=== PATIENT | male | born 1940 | race Caucasian/White ===

== ENCOUNTER 2021-10-19 11:57 | Outpatient (CLI) | payer MEDICARE, BC, SELFPAY ==
--- NOTE | 2021-10-19 | ECG_ITS ---
Measurements Intervals [place] Rate: 51 P: 33 VA: 216 QRS: -4 QRSD: 153 T: 2 QT: 456 QTc: 423 Interpretive Statements SINUS BRADYCARDIA WITH FIRST DEGREE AV BLOCK RIGHT BUNDLE BRANCH BLOCK ABNORMAL ECG NO PREVIOUS ECG AVAILABLE FOR COMPARISON Electronically Signed On 10-19-2021 15:06:11 CDT by Jamie Storm D.O.
[2021-10-19 12:27] LABS: Hematocrit 39.8 % (42.0-52.0)
[2021-10-19 12:39] LABS: Albumin Level 4.3 g/dL (3.5-5.1); Estimated Glomerular Filt Rate > 60; Glucose 96 mg/dL (65-110)
[2021-10-19 14:25] LABS: Hemoglobin A1C 5.6 % (<5.7)
== END 2021-10-19 11:58 | disposition home or self-care (01) ==
PROVIDERS: PCP Family Medicine; Visit Provider Orthopaedic Surgery
DX: M17.12 Unilateral primary osteoarthritis, left knee (principal); I10 Essential (primary) hypertension; E78.5 Hyperlipidemia, unspecified; Z86.79 Personal history of other diseases of the circulatory system; Z01.818 Encounter for other preprocedural examination
CPT/HCPCS: 36415; 82040; 82565; 82947; 83036; 85014; 85018; 93005

== ENCOUNTER 2021-11-28 11:48 | Outpatient (CLI) | payer MEDICARE, BC, SELFPAY ==
[2021-11-28 13:19] LABS: Basophils Absolute Auto 0.1 K/mm3 (0.0-0.1); Basophils Percent Auto 1.2 % (0.2-1.2); Eosinophils Absolute Auto 0.1 K/mm3 (0-0.3); Eosinophils Percent Auto 1.7 % (0-4.4); Hematocrit 40.8 % (42.0-52.0); Hemoglobin 13.4 g/dL (14.0-18.0); Immature Granulocyte Absolute 0.02 K/mm3 (0.00-0.031); Immature Granulocyte Percent A 0.4 % (0-0.5); Lymphocytes Absolute Auto 1.76 K/mm3 (0.9-3.2); Lymphocytes Percent Auto 33.8 % (18.3-44.2); Mean Corpuscular HGB Conc 32.8 g/dl (32-36); Mean Corpuscular Hemoglobin 32.4 pg (26-34); Mean Corpuscular Volume 98.6 fl (80-100); Mean Platelet Volume 9.2 fl (7.4-10.4); Monocytes Absolute Auto 0.6 K/mm3 (0.1-0.6); Monocytes Percent Auto 12.1 % (2.6-8.5); Neutrophils Absolute Auto 2.6 K/mm3 (1.3-6.7); Neutrophils Percent Auto 50.8 % (45.5-73.1); Platelet Count Result 205 k/mm3 (150-375); Red Blood Count 4.14 M/mm3 (4.6-6.20); Red Cell Distribution Width 13.1 % (11.5-14.5); White Blood Count 5.2 K/mm3 (4.5-10.0)
[2021-11-28 13:26] LABS: Urine Cotinine NEGATIVE
[2021-11-28 13:26] LABS: Anion Gap 9 mmol/L (8-16); Blood Urea Nitrogen 20 mg/dL (9-20); Calcium 9.3 mg/dL (8.4-10.2); Carbon Dioxide 31 mmol/L (22-30); Chloride 99 mmol/L (98-107); Estimated Glomerular Filt Rate > 60; Glucose 100 mg/dL (65-110); Potassium 4.9 mmol/L (3.4-5.0); Sodium 139 mmol/L (137-145)
== END 2021-11-28 11:49 | disposition home or self-care (01) ==
LOC: ANHSURGERY 11:54
PROVIDERS: Anesthesiology; PCP Family Medicine; Visit Provider Orthopaedic Surgery
DX: Z01.818 Encounter for other preprocedural examination (principal); M17.12 Unilateral primary osteoarthritis, left knee; I10 Essential (primary) hypertension
CPT/HCPCS: 36415; 80048; 80307; 85025; 87081

== ENCOUNTER 2022-01-16 08:21 | Outpatient (CLI) | payer MEDICARE, BC, SELFPAY ==
[2022-01-16 09:03] LABS: Albumin Level 4.2 g/dL (3.5-5.1)
[2022-01-16 09:24] LABS: Hemoglobin A1C 5.8 % (<5.7)
== END 2022-01-16 08:22 | disposition home or self-care (01) ==
PROVIDERS: PCP Family Medicine; Visit Provider Orthopaedic Surgery
DX: Z01.812 Encounter for preprocedural laboratory examination (principal); M17.12 Unilateral primary osteoarthritis, left knee
CPT/HCPCS: 36415; 82040; 83036; 86850; 86900; 86901

== ENCOUNTER 2022-01-21 00:44 | Day surgery (SDC) | payer MEDICARE, BC, SELFPAY ==
[2021-11-28 12:02] VITALS: BMI 32.1
--- NOTE | 2021-11-28 12:31 | PC.NURSE ---
Report to the Outpatient Waiting Room, entrance under the green pavilion located off [facility], at time __1000 on date __12/24/21 . Planned Procedure Time: _1200 . Time changes happen often and if your time is changed the preop area will call you the afternoon before. - You and your visitor will be asked to self-screen and do not enter if you have any COVID symptoms. - We encourage only one visitor and NO visitors under age 16 are allowed at this time. Your visitor will receive communication by the phone number that is given day of service. - The patient visitor is requested to social distance or may leave the building when not with patient due to restrictions. - A mask is required within the hospital. Patients may have clear liquids (water, carbonated beverages, clear teas, apple juice) until 3 hours prior to surgery with a maximum of 20 ounces. - No food from midnight until time of surgery - Infants may have breast milk until 4 hours before surgery, formula 6 hours prior to surgery. - Children will be allowed to drink immediately following surgery. If applicable, please bring a bottle or sippy cup to assist with drinking. Juice, water, soda, and popsicles are readily available. For infants on formula, please bring formula the day of surgery. Pacifiers are allowed. Take the following medications with a SIP of water the morning of surgery: _METOPROLOL Medications to discontinue per physician ___VITAMIN D3 3 DAYS PRE OP Date to take last dose__12/20/21 TOTAL JOINT CLASS 12/12/21 AT 10 AM Please no make-up, nail bruneian, hairspray, perfume, deodorant, or body powder the day of surgery. No jewelry (including any body piercings) or valuables the day of surgery, leave them at home. Please take a shower or bath the night before, or the morning of, surgery with an antibacterial soap. Wear comfortable, loose fitting clothing. Children are encouraged to wear pajamas. - Jewelry must be removed prior to entering the operating room. Rings and piercings that are not removed may be cut off. - The hospital will not accept responsibility for valuables. - Please leave all valuables, including medications, at home the day of surgery. If you are going home after surgery, a licensed [employer]mobile driver must drive you home. - NO public transportation without another adult. - We recommend that an adult stay with you for 24 hours following discharge. - We also recommend that you do not drive, make important decision, drink alcoholic beverages, or take any drugs that were not prescribed by your health care provider for at least 24 hours after your discharge time. For Pediatric surgeries, we recommend two adults accompany the child home. Follow any additional instructions given to you from your surgeon. If you or anyone in your household have experienced Covid symptoms in the past week, please notify your surgeon or the nurse liaison at the phone number below for possible testing. VERBAL AND WRITTEN instructions given to ___PATIENT AND LEELEE and asked if any additional questions and then verbalized understanding. Patient advised to call surgeon office or pre surgery nurse liaison [phone] if any additional questions.
[2021-11-28 12:56] VITALS: BP 121/71; PULSE 58; RESP 18; TEMP 37.1; O2SAT 99
--- NOTE | 2022-01-09 12:25 | PC.NURSE ---
Report to the Outpatient Waiting Room, entrance under the green pavilion located off [facility] [address] [facility] [address], at time __1000 on date _01/21/22 . Planned Procedure Time: __1200 . Time changes happen often and if your time is changed the preop area will call you the afternoon before. - You and your visitor will be asked to self-screen and do not enter if you have any COVID symptoms. - Only one visitor is requested with a max of two and NO children visitors are allowed at this time. - The patient visitor may be requested to leave or wait in car when not with patient due to distancing restrictions. - A mask is optional within the hospital. Patients may have clear liquids (water, carbonated beverages, clear teas, apple juice) until 3 hours prior to surgery with a maximum of 20 ounces. - No food from midnight until time of surgery - Infants may have breast milk until 4 hours before surgery, infant formula 6 hours prior to surgery. - Children will be allowed to drink immediately following surgery. If applicable, please bring a bottle or sippy cup to assist with drinking. Juice, water, soda, and popsicles are readily available. For infants on formula, please bring formula the day of surgery. Pacifiers are allowed. Take the following medications with a SIP of water the morning of surgery: ___METOPROLOL Medications to discontinue per physician ____VITAMIN D3 3 DAYS PRE OP Date to take last dose___01/17/22 Please no make-up, nail malay, hairspray, perfume, deodorant, or body powder the day of surgery. No jewelry (including any body piercings) or valuables the day of surgery, leave them at home. Please take a shower or bath the night before, or the morning of, surgery with an antibacterial soap. Wear comfortable, loose fitting clothing. Children are encouraged to wear pajamas. - Jewelry must be removed prior to entering the operating room. Rings and piercings that are not removed may be cut off. - The hospital will not accept responsibility for valuables. - Please leave all valuables, including medications, at home the day of surgery. If you are going home after surgery, a licensed driver license agent must drive you home. - NO public transportation without another adult if you receive anesthesia. - We recommend that an adult stay with you for 24 hours following discharge. - We also recommend that you do not drive, make important decision, drink alcoholic beverages, or take any drugs that were not prescribed by your health care provider for at least 24 hours after your discharge time. For Pediatric surgeries, we recommend two adults accompany the child home. Follow any additional instructions given to you from your surgeon. If you or anyone in your household have experienced Covid symptoms in the past week, please notify your surgeon or the nurse liaison at the phone number below for possible testing. Telephone instructions given to __PT'S LEELEE and asked if any additional questions and then verbalized understanding. Patient advised to call surgeon office or pre surgery nurse liaison [phone] if any additional questions.
--- NOTE | 2022-01-09 12:34 | PC.NURSE ---
POSITIVE FOR COVID ON 12/17/21.SURGERY FOR LTKA RESCHEDULED. SPOKE TO LELEEE STATES NO CHANGE IN HEALTH HX SINCE LAST INTERVIEW ON 11/28/21
[2022-01-21] VITALS (14 sets, daily range): BP systolic 117–140; BP diastolic 61–78; PULSE 55–70; RESP 14–19; TEMP 36.2–37.3; O2SAT 95–100
--- NOTE | ~2022-01-21 | XR_ITS ---
EXAMINATION: XR knee LT 2V DATE: 01/21/2022 14:37 INDICATION: Left knee arthroplasty. Postop. TECHNIQUE: 2 views of left knee were obtained. COMPARISON: Left knee radiographs 11/28/2021 FINDINGS: There is a total left knee arthroplasty with patellar resurfacing in near-anatomic alignmen t. No fracture. There are loose bodies in a Adrian's cyst. There is gas in the soft tissues, consisten t with recent surgery. There is a small knee joint effusion. IMPRESSION: 1. Total left knee arthroplasty in near-anatomic alignment. Reviewed, dictated and finalized at location A. E SHEETFED PRESS OPERATOR
--- NOTE | 2022-01-21 08:31 | WPDANESEPPF ---
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 Patient Data Age: 81 Gender: M Height: 1.73 m Weight: 95.9 kg Last Vital Signs Temp 37.1 C 11/28/21 12:56 Pulse 58 L 11/28/21 12:56 Resp 18 11/28/21 12:56 BP 121/71 11/28/21 12:56 Pulse Ox 99 11/28/21 12:56 O2 Del Method Room Air 11/28/21 12:56 Allergies Allergy/AdvReac Type Severity Reaction Status Date / Time No Known Allergies Allergy Verified 01/21/22 10:02 Home Medications Medication Instructions Recorded Confirmed Type atorvastatin 10 mg tablet 10 mg PO DAILY 07/23/21 01/21/22 History hydrochlorothiazide 25 mg tablet 25 mg PO DAILY 07/23/21 01/21/22 History lisinopril 20 mg tablet 20 mg PO DAILY 07/23/21 01/21/22 History potassium chloride 10 mEq 10 meq PO DAILY 07/23/21 01/21/22 History capsule,extended release metoprolol succinate 25 mg 25 mg PO DAILY 11/28/21 01/21/22 History tablet,extended release 24 hr ECG: Date of Service: 10/19/21 Procedure(s): CA 12 lead EKG Accession Number(s): [id number] cc: ~ ? Measurements Intervals? [place]? Rate: ? 51 ? P:? 33 NM: ? 216? QRS:? -4 QRSD: ? 153? T:? 2 QT: ? 456? QTc:? 423? Interpretive Statements SINUS BRADYCARDIA WITH FIRST DEGREE AV BLOCK RIGHT BUNDLE BRANCH BLOCK ABNORMAL ECG NO PREVIOUS ECG AVAILABLE FOR COMPARISON Electronically Signed On 10-19-2021 15:06:11 CDT by Jamie Storm D.O. Patient hx anesthesia problems: none Family hx anesthesia problems: none Results Review: All pre-operative results and documents have been reviewed as part of the pre-operative evaluation. [facility] Past Medical History Medical History (Updated 01/21/22 @ 08:32 by Jose J Kasper MD) Acute pain of right knee BMI 31.0-31.9,adult BMI greater than 30 Encounter for other specified surgical aftercare Essential hypertension Hx of coronary artery disease Hyperlipidemia Other bursitis of hip, right hip Primary osteoarthritis of right hip Surgical History Surgical History History of hernia surgery (~2015) Presence of right artificial hip joint (~2018) Family History Family History Father Bone cancer Mother Cancer Sibling Sibling No problems noted. Social History Social History Smoking packs per day: 1.5 Smoking cigarettes per day: 30.0 Years smoked: 2 Smoking pack-years: 3.00 Smoking status: Former smoker Tobacco type: cigarettes Second hand tobacco smoke exposure: No Smoking end date: 10/11/1966 Additional smoking assessment comments: DENIES ANY FORM OF TOBACCO USE Alcohol intake: current Alcohol use details: 2 DRINKS A MONTH Substance use: never Substance use type: does not use Lack of Transportation: No Lack of Food: Never True Current Housing: I Have Housing Concerned About Future Housing: No Difficulty Paying Gas/Electric Bills: No Difficulty Paying for Meds: No Currently Unemployed: No Education: Master's Degree or Higher Difficulty w/ Childcare or Family Care: No Living arrangements: with family 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
[2022-01-21] MEDS: ACETAMINOPHEN 500 MG TABLET 1000 MG PO (10:12)
[2022-01-21] MEDS: LACTATED RINGERS 1,000 ML 30 ML IV CONT ×2 (10:36→14:23)
--- NOTE | 2022-01-21 11:13 | WPDANESPNB ---
Anes - Peripheral Nerve Block Date/Time: 01/21/22 11:13 I have discussed with the patient/family/POA the placement of a peripheral nerve block for post-operative pain management, including associated risks, benefits, complications, and side effects. Alternative methods of post-operative analgesia were detailed. Questions were solicited and answers provided to the satisfaction of the patient/family/POA. Time-Out: A pre-procedural Time-Out was completed immediately before starting the procedure and confirmed: Patient Identification, Site, Procedure, Patient Position and the Availability of Requisite Equipment. Clinical Indications: Acute post-operative pain management requested by the operative surgeon. Nerve Block Insertion Note Anes-nerve block: adductor canal left Patient position: supine Skin prep: chlorhexidine Needle: 22 gauge, stimulating, insulated echogenic needle. Needle length: 80 mm Technique: ultrasound Technique comment: in plane Injectate: bupivacaine 0.25% with epi 5 mcg/ml (30cc) Observations: tolerated well Complications: none Procedure start time:: 1210 Procedure end time:: 121
[2022-01-21] MEDS: TRANEXAMIC ACID 1,000MG/ISO100 1,000 MG/100 ML BAG 200 MG IVPB (11:27)
--- NOTE | 2022-01-21 11:53 | WPDHPUPDATE1 ---
History and Physical Update Update Date/Time: 01/21/22 11:53 History and Physical has been reviewed, including an updated exam of the patient. There are NO changes in the patient's condition. Risks, benefits, and alternatives have been discussed and questions answered. Patient agrees to proceed with procedure.
[2022-01-21] MEDS: ceFAZolin 2 GM/D5W 50 ML 2 GM/50 ML BAG IVPB ×2 (12:30→20:48)
[2022-01-21] MEDS: GENTAMICIN BONE CEMENT REFOBACIN 1 EACH TOPICAL (13:47)
--- NOTE | 2022-01-21 14:40 | SUR.PHASEI ---
1433 xrays of left knee done.
--- NOTE | 2022-01-21 15:11 | P.OP_ITS ---
Procedure Note - Detailed Date of Procedure 01/21/22 Pre-op Diagnosis primary oa left knee Post-op Diagnosis Same Procedure Performed Total knee arthroplasty, left knee. Surgeon Abhijeet Lopez MD Interchange Agent Radha Gallo PA-C Anesthesia General and Regional (subsartorial block) Findings Fair bone quality. No releases required. 6 degree valgus femur cut due to the bony anatomy. 9mm resection from the high medial side of cartilage. Description of Procedure The patient was brought to the operating room. A general anesthetic was administered. The leg was prepped and draped in the usual sterile fashion. The limb was elevated and the tourniquet inflated to 300 mmHg. A longitudinal incision was created along the medial border of the patella and patellar tendon, and a trivector approach to the knee was performed. No significant medial release was taken. The knee was then flexed. The osteophytes were carefully removed. The intramedullary guide was placed in the femoral canal. The distal femoral resection was then taken with the oscillating saw. The collateral ligaments were carefully protected. The tibia was carefully exposed. The jig was applied, and the proximal tibia was resected according to preoperative plan. The knee was balanced in extension. Appropriate releases were taken where needed. The anterior cruciate ligament and meniscal remnants were removed. The posterior cruciate ligament was preserved. The patella was measured. Patellar resection was carried out with the oscillating saw. The lug holes drilled. The femur was sized and rotation assessed using a combination of gap balancing, posterior referencing, and the AP axis. The 4 in 1 cutting block was used to finish the femoral cuts after equal gaps were assured. The osteophytes were carefully removed from the back of the knee. The knee was copiously irrigated with antibiotic solution periodically throughout the procedure. The meniscal remnants were removed. The spacer block was used to confirm equal flexion and extension gaps. No further releases were needed. The tibia was sized and broached. The bony surfaces were prepared for cementing with pulsatile lavage. The real tibial and femoral components were cemented into position. Excess cement was carefully removed. The patella was press fit. Patellar tracking was carefully assessed. No additional releases were required. Dilute sterile Betadine soak performed for three minutes. Copious irrigation then performed. The wound was closed with #1 Vicryl suture, #2, 2-0, and 3-0 barbed suture, followed by Steri-Strips. A sterile bulky dressing was applied. Meticulous hemostasis was maintained throughout the procedure. The bipolar cautery device was used. The pain relieving mixture was injected into the periarticular tissues during the procedure. There were no complications. The patient was extubated and brought to the recovery room in stable condition after the application of sterile dressing with Maicol bandage. Physician assistant associate full professor, Radha Gallo PA-C, required for surgery; including patient positioning, draping, tissue retraction, maintaining instrument position, wound closure, and dressing placement. Implants [employer] Triathlon knee system, low profile cemented tibia size 7, cemented cruciate retaining femoral component size 6 ,and an 13 mm cruciate retaining polyethylene insert. 38 mm asymmetric tritanium metal patella component. Estimated Blood Loss -100.0 Drains No Pathology None sent Complications No immediate complications Condition Stable Disposition PACU [facility] Billing Surgery - Charge Forward: Surgery Billing
--- NOTE | 2022-01-21 15:48 | SUR.PHASEI ---
1530 awaiting room assignment to floor,criteria met for discharge from recovery room.
--- NOTE | 2022-01-21 18:04 | ADMGEN ---
This patient, Tato Almonte, was admitted to 2 Medical Room 253-01. Patient/family oriented to hospital policies and general routines including ID bracelet, bed and alarms, visiting hours, pain management, procedures, bathroom and other care routines, personal items, smoking policy, room service/diet, and visiting hours. Information on how to activate the Rapid Response Team has been discussed. Patient/Family are encouraged to report perceived risks to care and to ask questions if they do not understand what they are told or what they should do.
[2022-01-21] MEDS: ASPIRIN 81 MG ENTERIC TABLET PO (18:53)
[2022-01-21] MEDS: SENNA/DOCUSATE SODIUM TABLET 2 TAB PO (18:53)
[2022-01-21] MEDS: MELOXICAM 7.5 MG TABLET PO (18:54)
[2022-01-21] MEDS: FAMOTIDINE 20 MG TABLET PO (20:48)
[2022-01-22 03:25] VITALS: BP 107/62; PULSE 67; RESP 18; TEMP 36.6; O2SAT 97
[2022-01-22] MEDS: ceFAZolin 2 GM/D5W 50 ML 2 GM/50 ML BAG IVPB ×2 (05:05→12:20)
[2022-01-22 05:29] LABS: Basophils Percent Auto 0.2 % (0.2-1.2); Hemoglobin 11.1 g/dL (14.0-18.0); Immature Granulocyte Absolute 0.06 K/mm3 (0.00-0.031); Immature Granulocyte Percent A 0.5 % (0-0.5); Lymphocytes Absolute Auto 0.97 K/mm3 (0.9-3.2); Lymphocytes Percent Auto 8.6 % (18.3-44.2); Mean Corpuscular HGB Conc 32.6 g/dl (32-36); Mean Corpuscular Hemoglobin 31.9 pg (26-34); Mean Corpuscular Volume 97.7 fl (80-100); Mean Platelet Volume 9.1 fl (7.4-10.4); Monocytes Absolute Auto 0.9 K/mm3 (0.1-0.6); Monocytes Percent Auto 7.6 % (2.6-8.5); Neutrophils Absolute Auto 9.4 K/mm3 (1.3-6.7); Neutrophils Percent Auto 83.1 % (45.5-73.1); Platelet Count Result 195 k/mm3 (150-375); Red Blood Count 3.48 M/mm3 (4.6-6.20); Red Cell Distribution Width 13.2 % (11.5-14.5); White Blood Count 11.3 K/mm3 (4.5-10.0)
[2022-01-22 06:04] LABS: Anion Gap 4 mmol/L (8-16); Blood Urea Nitrogen 23 mg/dL (9-20); Calcium 8.6 mg/dL (8.4-10.2); Carbon Dioxide 30 mmol/L (22-30); Chloride 103 mmol/L (98-107); Estimated CRCL calculation 70 ml/min; Estimated Glomerular Filt Rate > 60; Glucose 119 mg/dL (65-110); Potassium 4.7 mmol/L (3.4-5.0); Sodium 137 mmol/L (137-145)
--- NOTE | 2022-01-22 09:58 | PC.NURSE ---
RECEIVED PT. VIA WC TO SUPERVISOR SAMPLE [address] [place] [address] MED/SURG OF PATIENT. DISCHARGE HOME PLANNED FOR TODAY POST L. TKA WITH DR. JUDD YESTERDAY, 01/21/22. REPORT HAS BEEN RECEIVED FROM NOHELIA TAPIA ON [address] [place] [address]. A&[address]4, DENIES PAIN OR SOB. ORIENTED TO ROOM/UNIT. HERBERTH RAMACHANDRAN HERE TO SEE PT. WILL CONTINUE TO MONITOR. AT BEDSIDE.
--- NOTE | 2022-01-22 10:38 | PM.DS ---
DS: Admitting Diagnosis Discharge Date 01/22/22 Admitting Diagnosis OA knee Left DS: Discharge Diagnosis Discharge Diagnosis (1) Status post total left knee replacement: Code(s): Z96.652 - Presence of left artificial knee joint Status: Acute Assessment and Plan: Postop day 1: Left total knee arthroplasty. Patient tolerated procedure well. No complications. Pain manageable with pain medication. No numbness or tingling. We had a lengthy discussion regarding postoperative wound care, limitations, expectations, and exercises. Patient shows good understanding. He has had initial physical therapy and is tolerating it well. DVT prophylaxis: 81 mg baby aspirin b.i.d. for 14 days. Pain medication: Percocet. Prednisone. Meloxicam. Antibiotic: Keflex BID for 10 days. Patient has followup appointment with Dr. Lopez in 3 weeks. DS: Summary Hospital Course Reason for hospitalization: Total knee arthroplasty Hospital Course: Patient tolerated procedure well. Has had initial PT/OT. Status at Discharge Functional status at discharge: uses cane/walker Overall status at discharge: patient is progressing back to baseline Time Spent with Patient Time attestation: Total time spent providing and/or coordinating discharge services: Exam Narrative: 81-year-old overweight male. Resting comfortably in bed. Alert and oriented x3. No acute distress. Wearing compression socks bilaterally. Dressing intact without drainage. Mild swelling. No ecchymosis. No erythema. No hematoma. Range of motion limited due to pain. Calf nontender. Neurologic status intact. No varicosities. Distal pulses palpable. DS: Data Data Completed and Pending Labs on day of discharge: Labs from last 24 hours 01/22/22 01/22/22 04:56 04:56 WBC 11.3 H RBC 3.48 L Hgb 11.1 L Hct 34.0 L MCV 97.7 MCH 31.9 MCHC 32.6 RDW 13.2 Plt Count 195 MPV 9.1 Immature Gran % (Auto) 0.5 Neut % (Auto) 83.1 H Lymph % (Auto) 8.6 L Mora % (Auto) 7.6 Eos % (Auto) 0.0 Baso % (Auto) 0.2 Lymph # (Auto) 0.97 Mora # (Auto) 0.9 H Eos # (Auto) 0.0 Baso # (Auto) 0.0 Abs Immat Gran (auto) 0.06 H Absolute Neuts (auto) 9.4 H Absolute Nucleated RBC 0.0 Nucleated RBC % 0.0 Sodium 137 Potassium 4.7 Chloride 103 Carbon Dioxide 30 Anion Gap 4 L BUN 23 H Creatinine 0.80 Estim Creat Clear Calc 70 Estimated GFR > 60 Glucose 119 H Calcium 8.6 Discharge Plan Discharge Patient Disposition: Home, Self-Care Discharge Instructions: See green instruction sheets Stand Alone Forms: General Discharge Instructions Follow-up/Referrals: Radha Gallo PA [Physician Land Appraiser] - Discharge Medications: New meloxicam 15 mg tablet 15 mg PO DAILY Qty: 30 0RF Rx Instructions: Cut in half. Take 1/2 in morning and 1/2 at night. Take with food. Stop if stomach upset. prednisone 5 mg tablet 5 mg PO DAILY 21 Days Qty: 21 0RF aspirin 81 mg tablet,delayed release (DR/EC) 81 mg PO BID 14 Days Qty: 28 0RF oxycodone-acetaminophen 5-325 mg tablet 1 - 2 tablet PO Q4-6H MDD 8 PRN (Reason: pain) Qty: 30 0RF cephalexin 500 mg capsule 500 mg PO BID 10 Days Qty: 20 0RF Rx Instructions: Take twice a day for 10 days. Continued atorvastatin 10 mg tablet 10 mg PO DAILY hydrochlorothiazide 25 mg tablet 25 mg PO DAILY potassium chloride 10 mEq capsule, extended release 10 meq PO DAILY lisinopril 20 mg tablet 20 mg PO DAILY metoprolol succinate 25 mg tablet extended release 24 hr 25 mg PO DAILY
[2022-01-22] MEDS: polyethylene glycoL 3350 17 GM POWD.PACK PO (11:20)
[2022-01-22] MEDS: SENNA/DOCUSATE SODIUM TABLET 2 TAB PO (11:21)
[2022-01-22] MEDS: ATORVASTATIN 10 MG TABLET PO (11:21)
[2022-01-22] MEDS: predniSONE 5 MG TABLET PO (11:21)
[2022-01-22] MEDS: ASPIRIN 81 MG ENTERIC TABLET PO (11:21)
[2022-01-22] MEDS: FAMOTIDINE 20 MG TABLET PO (11:22)
[2022-01-22] MEDS: hydroCHLOROthiazide 25 MG TABLET PO (11:22)
[2022-01-22 11:23] VITALS: PULSE 73
[2022-01-22] MEDS: lisinopriL 20 MG TABLET PO (11:23)
[2022-01-22] MEDS: MELOXICAM 7.5 MG TABLET PO (11:23)
[2022-01-22] MEDS: METOPROLOL SUCCINATE EXT REL 25 MG TABCR PO (11:23)
[2022-01-22 11:25] VITALS: BP 116/69; PULSE 73; RESP 20; TEMP 36.6; O2SAT 96
[2022-01-22] MEDS: oxyCODONE HCL (*CRX) 5 MG TAB IR PO (11:32)
--- NOTE | 2022-01-22 12:39 | WPDCN ---
Assessment and Plan Assessment and plan (1) Essential hypertension: Code(s): I10 - Essential (primary) hypertension Status: Acute Assessment and Plan: medical records reviewed blood pressure well controlled continue home medication currently on lisinopril and metoprolol patient will follow-up with the primary care physician. Advised routine exercise low-salt diet (2) Hyperlipidemia: Qualifiers: Hyperlipidemia type: unspecified Qualified Code(s): E78.5 - Hyperlipidemia, unspecified Code(s): E78.5 - Hyperlipidemia, unspecified Status: Acute Assessment and Plan: folic taking statin repeat LDL levels in about 6-8 weeks (3) Left knee pain: Qualifiers: Chronicity: chronic Qualified Code(s): M25.562 - Pain in left knee; G89.29 - Other chronic pain Code(s): M25.562 - Pain in left knee Status: Acute Assessment and Plan: continue physical therapy status post left knee arthroplasty early ambulation leg elevation, Leonel hose, watch for DVT, pain control, discussed with patient in detail HPI Data of Consult Date/Time: 01/22/22 12:39 Requesting Physician: Abhijeet Lopez MD Primary Care Provider: Kenji Ch MD Consult Narrative Reason for consult: manage medical conditions patient is status post left knee arthroplasty Narrative: Tato Almonte is a 81 year old male Review of Systems Review of Systems: No fevers chills nausea vomiting. No double vision no blurry vision. No difficulty hearing or sinus complaints. No chest pain shortness of breath fever palpitation dizziness ankle swelling. No coughing wheezing chills. No nausea constipation diarrhea abdominal pain reflux. No urgency frequency of urination. No hematuria. No skin rash eczema. No anxiety depression difficulty sleeping. No bleeding gums enlarged glands. No muscle ache back pain joint stiffness. No loss of strength numbness headache tremor or loss of memory. [facility] Past Medical History Medical History (Updated 01/22/22 @ 10:36 by HERBERTH Castaneda) Acute pain of right knee BMI 31.0-31.9,adult BMI greater than 30 Encounter for other specified surgical aftercare Essential hypertension Hx of coronary artery disease Hyperlipidemia Other bursitis of hip, right hip Primary osteoarthritis of right hip Surgical History Surgical History (Updated 01/22/22 @ 10:36 by HERBERTH Castaneda) History of hernia surgery (~2016) Presence of right artificial hip joint (~2018) Family History Family History Father Bone cancer Mother Cancer Sibling Sibling No problems noted. Social History Social History Smoking packs per day: 1.5 Smoking cigarettes per day: 30.0 Years smoked: 2 Smoking pack-years: 3.00 Smoking status: Former smoker Tobacco type: cigarettes Second hand tobacco smoke exposure: No Smoking end date: 10/11/1966 Additional smoking assessment comments: DENIES ANY FORM OF TOBACCO USE Alcohol intake: current Alcohol use details: 2 DRINKS A MONTH Substance use: never Substance use type: does not use Lack of Transportation: No Lack of Food: Never True Current Housing: I Have Housing Concerned About Future Housing: No Difficulty Paying Gas/Electric Bills: No Difficulty Paying for Meds: No Currently Unemployed: No Education: Master's Degree or Higher Difficulty w/ Childcare or Family Care: No Living arrangements: with family 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
--- NOTE | 2022-01-22 14:10 | PC.NURSE ---
DISCHARGED HOME AT THIS TIME, OUT VIA WC WITH ALL PERSONAL BELONGINGS, WALKER, CRYOCUFF THERAPY SET UP. BILAT THIGH HIGH YANETH HOSE ARE ON. ALL QUESTIONS ANSWERED TO SATISFACTION DURING DISCHARGE INSTRUCTIONS. DISCHARGE GREEN SHEETS GIVEN. HOME VIA 'S CAR. VOICES NO C/O. NO DISTRESS NOTED.
== END 2022-01-22 14:10 | disposition home or self-care (01) ==
LOC: ANHSURGERY 13:46 → ANHCPC 01-22 12:36 → ANH2MED 02-15 06:38 → ANHCPC 02-15 06:38
PROVIDERS: Physician Assistant Surgical; PCP Family Medicine; Visit Provider Orthopaedic Surgery
PROC: (CPT 27447; principal; 2022-01-21 12:00)
DX: M17.12 Unilateral primary osteoarthritis, left knee (principal); G89.18 Other acute postprocedural pain; I10 Essential (primary) hypertension; I25.10 Atherosclerotic heart disease of native coronary artery without angina pectoris; E78.5 Hyperlipidemia, unspecified; Z96.641 Presence of right artificial hip joint; Z87.891 Personal history of nicotine dependence; E66.9 Obesity, unspecified; Z68.31 Body mass index [BMI] 31.0-31.9, adult
CPT/HCPCS: 27447; 64447; 36415; 73560; 80048; 85025; 97110; 97161; 97165; 97530; 97535; A9270; C1713; C1776; J0131; J0171; J0461; J0690; J1100; J1885; J2270; J2370; J2704; J2710; J2795; J3010; J7120; J7512

== ENCOUNTER 2022-06-10 09:54 | Outpatient (CLI) | payer MEDICARE, BC, SELFPAY ==
[2022-06-10 10:41] LABS: Basophils Absolute Auto 0.1 K/mm3 (0.0-0.1); Basophils Percent Auto 0.9 % (0.2-1.2); Eosinophils Absolute Auto 0.1 K/mm3 (0-0.3); Eosinophils Percent Auto 1.4 % (0-4.4); Hematocrit 42.2 % (42.0-52.0); Hemoglobin 13.6 g/dL (14.0-18.0); Immature Granulocyte Absolute 0.01 K/mm3 (0.00-0.031); Immature Granulocyte Percent A 0.2 % (0-0.5); Lymphocytes Absolute Auto 1.76 K/mm3 (0.9-3.2); Mean Corpuscular HGB Conc 32.2 g/dl (32-36); Mean Corpuscular Hemoglobin 30.9 pg (26-34); Mean Corpuscular Volume 95.9 fl (80-100); Mean Platelet Volume 9.5 fl (7.4-10.4); Monocytes Absolute Auto 0.6 K/mm3 (0.1-0.6); Neutrophils Absolute Auto 3.2 K/mm3 (1.3-6.7); Neutrophils Percent Auto 56.5 % (45.5-73.1); Platelet Count Result 222 k/mm3 (150-375); Red Cell Distribution Width 13.4 % (11.5-14.5); White Blood Count 5.7 K/mm3 (4.5-10.0)
[2022-06-10 11:00] LABS: CRP < 0.5 mg/dL (<1.0)
[2022-06-10 11:49] LABS: Erythrocyte Sedimentation Rate 15 mm/hr (0-20)
== END 2022-06-10 09:55 | disposition home or self-care (01) ==
PROVIDERS: PCP Family Medicine; Visit Provider Physician Assistant Surgical
DX: M25.551 Pain in right hip (principal); Z96.641 Presence of right artificial hip joint
CPT/HCPCS: 36415; 85025; 85652; 86140

== ENCOUNTER → 2022-12-19 13:59 | Outpatient (CLI) | payer MEDICARE, BC, SELFPAY ==
--- NOTE | ~2022-12-19 | MR_ITS ---
EXAMINATION: MR hip RT wo con DATE: 12/19/2022 15:05 INDICATION: Chronic right hip pain TECHNIQUE: Magnetic resonance imaging (MRI) of the right hip was performed without intravenous contr ast. Sequences included full-field axial fluid sensitive FSE STIR and T1-weighted FSE, coronal of the pelvis with T1-weighted FSE, T2-weighted FS FSE and fluid sensitive FSE STIR, small field of view of the right hip with axial, sagittal and coronal fluid sensitive FSE STIR and coronal T2-weighted FSE . COMPARISON: None FINDINGS: Bones/labrum/cartilage: There is magnetic field artifact associated with a right total hip arthroplasty which obscures the im mediately adjacent bone and soft tissues. 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 There is associated severe disc height loss with degenerative endplate changes and likely secondary mild posterior vertebral body he ight loss at L5. No fracture, avascular necrosis or pathologic marrow replacing process. Mild osteoar thritis at the left hip with likely chronic degeneration of the left acetabular labrum which is been largely replaced by marginal osteophytes along the rim of the acetabulum. Fluid: There is a physiologic amount fluid at the left hip joint. There is a 2.8 x 1.5 x 0.7 cm collection o f fluid at the posterior junction of the calcar and the femoral component of the right hip arthroplas ty which is without stranding or edema in the surrounding fat to suggest infection. No bursitis or ot her abnormal fluid collections. Soft tissues: There is a partial tear of the posterior facet insertion of the right gluteus medius muscle with asym metric moderate associated fatty atrophy of the muscle belly there is relative preservation of the mo re anterior portion of the muscle belly. On the left there is proximal retraction of the myotendinous junction of the portion of the left gluteus medius extending to the lateral facet consistent with pa rtial tear and with mild associated atrophy of the anterior third of the muscle belly. There is moder ate to severe fatty atrophy of the bilateral gluteus minimus muscle bellies without evident associate d distal tendon tears. The visualized portions of the bilateral iliopsoas tendons are normal. Portion s of the right iliopsoas tendon are obscured by the metallic magnetic field artifact. There is mild a symmetric atrophy of the right psoas muscle belly. Mild right-sided and moderate left-sided tendinopa thy without tear of the bilateral proximal hamstring tendons. There is mild asymmetric atrophy of the right quadratus femoris muscle belly. There is focal mild fatty atrophy along the proximal left rect us femoris muscle belly. Prostatomegaly measuring 6.2 x 4.7 x 6.0 cm. There is a trabeculated mucosal surface to the bilateral multiple small bladder diverticula consistent with sequela of chronic outle t obstruction from the enlarged prostate. No pathologically enlarged pelvic/inguinal lymphadenopathy . IMPRESSION: 1. Small amount of fluid along the posterior margin of the femoral component of a right total hip art hroplasty which is likely within normal limits with no surrounding inflammatory changes to suggest se ptic arthritis. 2. L5 spondylolysis with bilateral pars in particular is defects, 1.2 cm anterolisthesis on S1 and se kofi associated degenerative disease at L5-S1. There is likely significant associated central canal a nd neural foraminal stenosis and would correlate with any describe symptoms would be consistent with radiculopathy. Could consider further evaluation with dedicated lumbar spine MRI as clinically indica jose angel. 3. Asymmetric atrophy of the bilateral gluteus medius, bilateral gluteus minimus, right psoas, right quadratus femoris and left rectus femoris muscles as detailed above. Atrophy of the bilateral gluteus medius muscles appears to correlat
== END ==
PROVIDERS: PCP Orthopaedic Surgery; Visit Provider Orthopaedic Surgery
DX: G89.29 Other chronic pain (principal); M25.551 Pain in right hip; Z96.641 Presence of right artificial hip joint; N32.3 Diverticulum of bladder; M47.896 Other spondylosis, lumbar region
CPT/HCPCS: 73721

== ENCOUNTER 2024-11-28 07:46 | Emergency (ER) | payer MEDICARE, BC, SELFPAY ==
--- OUTSIDE RECORDS SUMMARY | 2008-08-05 03:00 | XMS_ITS | Continuity of Care Document ---
Author Organization [facility] Address [address] [place] [address] Phone Care Team Providers Care Theatrical Rigger Name Role Phone Kang OD, Chilango Unavailable Unavailable Procedures Procedure Date Eye Exam & Treatment No Script Refraction Vision Svcs Frames Purchases SV Hi Index Sph [place] To +/- 4 Anti-reflective Coating Tax - Medical Progressive Lens, Hi Index Vision Svcs Frames Purchases Anti-reflective Coating Tax - Medical Advance Directives Directive Yes / No Effective Date File Name No Information Encounters Encounter Description Practice Location Reason(s) For Visit Diagnoses Date Provider Providers Copied on Encounter [facility], [address] [place] [address] [address], [place], [place], [id number], [place] tel:[phone] [facility] No Information 200 9 Kang OD Chilango. [address] , [address], [place], [address], [place]. tel:[phone] [facility], [address] [place] [address] [address], [place], [place], [id number], [place] tel:[phone] [facility] No Information 2 6[address] [facility] . [address] [facility] [address], [address], [place], [place], [id number], [place]. tel:[phone] [facility], [address] [place] [address] [address], [place], [place], [address], [place] tel:[phone] [facility] No Information 9 [facility] . [address], [address], [place], [place], [address], [place]. tel:[phone] Referring Provider: Chilango Polo, [address], [place], [address]. tel:[phone] so Provider: Cassidy Clement, [address] [facility], [place], [address]. tel:[phone] Family History Family Member Type Diagnosis Age At Onset No Information Payers Payer name Insurance type Covered libertarian ID Authoriza tion(s) Medicare [facility] [id number] BCBS [facility] [id number] Social History Type Description Quantity Date Captured Comments Sex Male Smoking Status No Information Chief Complaint And Reason For Visit No Information Reason For Referral Reason For Referral No Information History Of Present Illness Encounter Date Complaint History Of Prese nt Illness No Information Functional Status Date Functional Assessmen t No Information Instructions Date Instruction Additional Infor mation No Information Assessments Type Assessment Date No Information Patient Care Teams Name Effective Dates (start - stop) Status Members No Information
--- OUTSIDE RECORDS SUMMARY | 2008-08-05 03:00 | XMS_ITS | Continuity of Care Document ---
Author Organization [facility] Address [address] [place] [address] Phone Care Team Providers Care Wire Dropper Name Role Phone Kang OD, Chilango Unavailable Unavailable Procedures Procedure Date Eye Exam & Treatment No Script Refraction Vision Svcs Frames Purchases SV Hi Index Sph [place] To +/- 4 Anti-reflective Coating Tax - Medical Progressive Lens, Hi Index Vision Svcs Frames Purchases Anti-reflective Coating Tax - Medical Advance Directives Directive Yes / No Effective Date File Name No Information Encounters Encounter Description Practice Location Reason(s) For Visit Diagnoses Date Provider Providers Copied on Encounter [facility], [address] [place] [address] [address], [place], [place], [id number], [place] tel:[phone] SEC [facility] No Information 200 9 Kang OD Chilango. [address] , [address], [place], [address], [place]. tel:[phone] [facility], [address] [place] [address] [address], [place], [place], [id number], [place] tel:[phone] [facility] No Information 2 6200 [address] [facility] . [address] [facility], [address], [place], [place], [address], [place]. tel:[phone] [facility], [address] [place] [address] [address], [place], [place], [id number], [place] tel:[phone] [facility] No Information 9 [facility] . [address] [facility], [address], [place], [place], [address], [place]. tel:[phone] Referring Provider: Chilango Polo, [address] [facility] [address] [facility] [address], [place], [address]. tel:[phone] so Provider: Cassidy Clement, [address] [facility], [place], [address]. tel:[phone] Family History Family Member Type Diagnosis Age At Onset No Information Payers Payer name Insurance type Covered libertarian ID Authoriza tion(s) Medicare [facility] [id number] BCBS [facility] [id number] Social History Type Description Quantity Date Captured [...]
--- NOTE | ~2024-11-28 | CT_ITS ---
CT HEAD NON-CONTRAST CT C-SPINE Clinical History: Fall Comparison: None Technique: Unenhanced axial images skull base to vertex. Coronal, sagittal reformats. Axial images thoracic inlet to skull base. Sagittal and coronal reformats. CT images acquired with automatic exposure control for dose reduction DLP: 908 mGy-cm Findings: Head: Age-related atrophy. Chronic white matter microvascular ischemic changes. Sulci, ventricles: Unremarkable. No intracerebral hemorrhage. No evidence acute territorial infarct. No mass effect, midline shift, intra-/extra-axial fluid collection. Bony calvarium intact. Visualized paranasal sinuses: Clear. Mastoid air cells: Clear. C-spine: No acute fracture. Grade 1 anterolisthesis C4 on 5, C7 on T1. Grade 1 retrolisthesis C5 on 6. 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 Prevertebral soft tissues within normal limits. Visualized lung apices: Clear. Visualized thyroid: Unremarkable. No enlarged cervical nodes. IMPRESSION: HEAD: 1. No acute intracranial findings. C-SPINE: 1. No acute fracture. Reviewed, dictated and finalized at location R. IMPRESSION: HEAD: 1. No acute intracranial findings. C-SPINE: 1. No acute fracture.
--- OUTSIDE RECORDS SUMMARY | 2024-11-28 07:49 | XMS_ITS | Encounter Summary ---
Author Organization [facility] Address [address] [place] [address] Care Team Providers Care Belting And Webbing Inspector Name Role Phone Geoff Fallon MD Primary Care Provider [phone] Marek Sanches MD Primary Care Provider Kenji Ch MD Primary Care Provider [phone] Encounter Details Date Type Department Care Team (Late st Contact Info) Description 01/01/2013 Orders Only [facility] Health Information Management [address] [place] [address] Scanning, Provider Social History Tobacco Use Types Packs/Day Years Used Date Smoking Tobacco: Never Assessed Sex and Gender Information Value Date Recorded Sex Assigned at Not on file Legal Sex Male 2:36 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 Gender Identity Male 12/12/2023 12:49 PM CDT Sexual Orientation Straight 12/22/2020 2: 32 AM TIMBER SKIDDER documented as of this encounter Plan of Treatment Not on file documented as of this encounter Procedures Procedure Name Priority Date/Time Associated Diagnosis Comments CARDIOLOGY DOCUMENT SCAN 01/01/2013 documented in this encounter Results * SCAN - CARDIOLOGY (01/01/2013) Anatomical Region Laterality Modality Other us Provider Scanning CV CARDIAC SERVICES PROCEDURES Final Result documented in this encounter Visit Diagnoses Not on filedocumented in this encounter Care Teams Belting And Webbing Inspector Relationship Specialty Start Date End Date Geoff Fallon MD [address] [place] [address] PCP - General Family Medicine 05/07/18 03/02/20 Marek Sanches MD [address] [place] [address] PCP - General 03/03/20 06/28/21 Kenji Ch MD [address] [place] [address] PCP - General Family Medicine 06/29/21 documented as of this encounter
--- OUTSIDE RECORDS SUMMARY | 2024-11-28 07:49 | XMS_ITS | Clinical Summary ---
Author Organization [facility] Address [address] [place] [address] Care Team Providers Care Auto Electrical Technician Name Role Phone Kenji Ch MD Primary Care Provider [phone] Allergies No known active allergies Medications potassium chloride ER 10 mEq CR tabletIndication s:Essential hypertension Take 1 tablet/cap natalia (10 mEq total) by mouth daily 90 tablet 2 5 Active lisinopriL (PRINIVIL,ZESTRI L) 20 mg tablet TAKE 1 TABLET(20 MG) BY MOUTH DAILY 90 tablet 2 5 Active atorvastatin (LIPITOR) 10 mg tabletIndication s:Pure hypercholesterol emia,Essential hypertension TAKE 1 TABLET(10 MG) BY MOUTH DAILY 90 tablet 1 5 Active hydroCHLOROthiaz angel (HYDRODIURIL) 25 mg tabletIndication s:Essential hypertension TAKE 1 TABLET(25 MG) BY MOUTH DAILY 90 tablet 3 5 Active metoprolol XL (TOPROL-XL) 25 mg extended release tablet TAKE 1 TABLET(25 MG) BY MOUTH DAILY 90 tablet 2 5 Active atorvastatin (LIPITOR) 10 mg tabletIndication s:Pure hypercholesterol emia,Essential hypertension TAKE 1 TABLET(10 MG) BY MOUTH DAILY 90 tablet 1 4 025 Discontinued metoprolol XL (TOPROL-XL) 25 mg extended release tablet Take 1 tablet (25 mg total) by mouth daily 90 tablet 2 5 025 Discontinued hydroCHLOROthiaz angel (HYDRODIURIL) 25 mg tabletIndication s:Essential hypertension TAKE 1 TABLET(25 MG) BY MOUTH DAILY 90 tablet 2 5 025 Discontinued Active Problems Problem Noted Date Diagnosed Date Nonrheumatic aortic (valve) insufficiency 2024 RBBB 05/01/2023 Hyperlipidemia LDL goal <100 05/01/2023 Pulmonary hypertension 05/01/2023 Essential hypertension 01/30/2018 Personal history of other di seases of the circulatory system 12/12/2015 Surgical History Surgery Date Site/Laterality Comments HERNIA REPAIR REPLACEMENT TOTAL HIP LATERA L POSITION 07/11/2017 - 08/09/2017 Right APPENDECTOMY age 12 JOINT REPLACEMENT Hip in 2017, Knee in 2021 Medical History Medical History Date Comments Arrhythmia Hypertension Family History Medical History Relation Name Comments Hyperlipidemia Mother Relation Name Status Comments Mother Social History Tobacco Use Types Packs/Day Years Used Date Smoking Tobacco: Former Cigarettes 0.5 8 0 02/18/1959 - 02/18/1966 Smokeless Tobacco: Never Tobacco Cessation:Counseling Given: Not Answered Alcohol Use Standard Drinks/Week Comments Yes 0 (1 standard drink = 0.6 oz pur e alcohol) Sex and Gender Information Value Date Recorded Sex Assigned at Not on file Legal Sex Male 2:36 AM STRUCTURAL ARCHITECT Gender Identity Male 12/12/2023 12:49 PM CDT Sexual Orientation Straight 12/22/2020 2: 32 AM STRUCTURAL ARCHITECT Obstetrics History Last Filed Vital Signs Vital Sign Reading Time Taken Comments Blood Pressure 118/68 07/14/2024 8:14 AM CDT Pulse 68 07/14/2024 8:14 AM CDT Temperature - - Respiratory Rate - - Oxygen Saturation 97% 07/14/2024 8:14 AM CDT Inhaled Oxygen Concentration - - Weight 95.3 kg (210 lb) 07/14/2024 8:14 AM CDT Height 172.7 cm (5' 8) 07/14/2024 8:14 AM CDT Body Mass Index 31.93 07/14/2024 8:14 AM CDT Plan of Treatment Health Maintenance Due Date Last Done Comments Depression Screening 1940 Fall Risk Assessment 1940 DTaP/Tdap/Td Vaccine (1 - Tdap) 09[birth year]11/1951 Hepatitis B Screening 1958 Pneumococcal vaccine 65+ (1 of 1 - PCV) 1990 Zoster Vaccine (1 of 2) 1990 Well Visit 65+ 2005 Covid-19 Vaccine (3 - season) 2024, 03/30/2020 Influenza Vaccine (#1) 2024 [place] [address] [facility] MEDICARE [facility] FEDERAL Care Teams Auto Electrical Technician Relationship Specialty Start Date End Date Kenji Ch MD PCP - General Family Medicine 06/29/21
[2024-11-28 08:12] VITALS: BP 122/69; PULSE 57; RESP 18; TEMP 36.7; O2SAT 97
--- NOTE | 2024-11-28 08:24 | ED.GENADULT ---
HPI - General Adult General Chief complaint: Fall Stated complaint: FALL, HIT HEAD Time Seen by Provider: 11/28/24 07:51 History of Present Illness HPI narrative: 84 old male presents to the emergency to the department for evaluation after having a head injury. Patient reports he was walking into [facility] and stumbled and struck his head on a glass door. Patient states the door did not break. Patient denies loss consciousness. Patient denies any other pain or injury. Patient states he does have gait stability did baseline and reports he stumbled. Patient denies any associated lightheaded dizziness as the underlying cause of the fall. At time of evaluation patient is well-appearing and in no distress. Related Data Home Medications ?Medication ?Instructions ?Recorded ?Confirmed ?Last Taken ?Type atorvastatin 10 mg tablet 10 mg PO DAILY 07/23/21 11/28/24 01/20/22 History hydrochlorothiazide 25 mg tablet 25 mg PO DAILY 07/23/21 11/28/24 01/20/22 History lisinopril 20 mg tablet 20 mg PO DAILY 07/23/21 11/28/24 01/20/22 History potassium chloride 10 mEq 10 meq PO DAILY 07/23/21 11/28/24 01/20/22 History capsule,extended release metoprolol succinate 25 mg 25 mg PO DAILY 11/28/21 11/28/24 01/21/22 03:00 History tablet,extended release 24 hr Allergies Allergy/AdvReac Type Severity Reaction Status Date / Time No Known Allergies Allergy Verified 11/28/24 07:50 Review of Systems Review of Systems: All systems reviewed & are unremarkable except as noted in HPI and below PMFSH Past Medical History Medical History Shoulder dislocation BMI greater than 30 Essential hypertension Hyperlipidemia Hx of coronary artery disease BMI 31.0-31.9,adult Acute pain of right knee Other bursitis of hip, right hip Encounter for other specified surgical aftercare Primary osteoarthritis of right hip Surgical History Surgical History History of total left knee replacement (~01/21/22) History of hernia surgery (~2015) Presence of right artificial hip joint (~2017) Family History Family History Father Bone cancer Mother Cancer Sibling Sibling No problems noted. Social History Social History Smoking packs per day: 1.5 Smoking cigarettes per day: 30.0 Years smoked: 2 Smoking pack-years: 3.00 Smoking status: Former smoker Tobacco type: cigarettes Second hand tobacco smoke exposure: No Smoking end date: 10/11/1966 Additional smoking assessment comments: DENIES ANY FORM OF TOBACCO USE Alcohol intake: current Alcohol use details: 2 DRINKS A MONTH Substance use: never Substance use type: does not use Do You Feel Safe in your Home?: Yes Lack of Transportation: No Lack of Food: Never True Current Housing: I Have Housing Concerned About Future Housing: No Difficulty Paying Gas/Electric Bills: No Difficulty Paying for Meds: No Currently Unemployed: No Education: Master's Degree or Higher Difficulty w/ Childcare or Family Care: No Living arrangements: with family Occupation/Education: 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 HEAD: normocephalic, scalp contusion. EYES: PERRLA/EOMI, conjunctivae clear. NOSE: Normal no drainage EARS:TMS clear with good light reflex. THROAT: Pharynx clear, no exudate. NECK: Supple. No adenopathy, no masses. RESPIRATORY: Airway patent, respirations nonlabored. Clear to auscultation bilaterally, no rales, rhonchi, wheezing. CARDIOVASCULAR: Regular rate and rhythm without murmurs rubs or gallops. ABDOMINAL: Soft, nontender, nondistended, normal bowel sounds MUSCULOSKELETAL: Moves all extremities. Strength/ROM intact, No edema, No calf tenderness. NEURO: Alert. Cranial nerves II through XII intact. Good gait. Good coordination SKIN: Warm, dry. Normal Color Course Vital Signs Vital signs: Vital Signs Temperature 98.0 F 11/28/24 08:12 Pulse Rate 57 L 11/28/24 08:12 Respiratory Rate 18 11/28/24 08:12 Blood Pressure 122/69 11/28/24 08:12 Pulse Oximetry 97 11/28/24 08:12 Temperature 98.0 F 11/28/24 08:12 Pulse Rate 57 L 11/28/24 08:12 Respiratory Rate 18 11/28/24 08:12 Blood Pressure 122/69 11/28/24 08:12 Pulse Oximetry 97 11/28/24 08:12 Medical Decision Making MDM Narrative Medical decision making narrative: [age] old male presents emergency department for evaluation after having a ground level fall. Patient did strike the top of his head but denies any loss conscious. Patient denies any neck or back pain. Patient denies any other pain or injury from the fall. Patient had negative cervical spine and negative brain CT. Patient was able to ambulate at his baseline emergency department. All questions concerns were addressed patient was well-appearing at time discharge. Differential Diagnosis Differential Diagnosis: Subdural hematoma, subarachnoid hemorrhage, skull fracture, cervical spine fracture Vital Signs Vital Signs: Vital Signs Temperature 98.0 F 11/28/24 08:12 Pulse Rate 57 L 11/28/24 08:12 Respiratory Rate 18 11/28/24 08:12 Blood Pressure 122/69 11/28/24 08:12 Pulse Oximetry 97 11/28/24 08:12 Temperature 98.0 F 11/28/24 08:12 Pulse Rate 57 L 11/28/24 08:12 Respiratory Rate 18 11/28/24 08:12 Blood Pressure 122/69 11/28/24 08:12 Pulse Oximetry 97 11/28/24 08:12 Imaging Data Radiologist's impression: Impressions Cervical Spine CT 11/28/24 08:09 IMPRESSION: HEAD: 1. No acute intracranial findings. C-SPINE: 1. No acute fracture. Head CT 11/28/24 08:09 IMPRESSION: HEAD: 1. No acute intracranial findings. C-SPINE: 1. No acute fracture. Discharge Plan Discharge Clinical Impression: Head injury Patient Disposition: Home Condition: Stable Instructions: Antibiotic Form, Head Injury (ED) Additional Instructions: Have close follow-up with your primary care physician. If you have any worsening symptoms then please call or return to the emergency department. Patient Language: Urdu Prescriptions: No Action atorvastatin 10 mg tablet 10 mg PO DAILY hydrochlorothiazide 25 mg tablet 25 mg PO DAILY potassium chloride 10 mEq capsule, extended release 10 meq PO DAILY lisinopril 20 mg tablet 20 mg PO DAILY metoprolol succinate 25 mg tablet extended release 24 hr 25 mg PO DAILY Follow-up/Referrals: Kenji Ch MD [Primary Care Provider, [facility]]
--- OUTSIDE RECORDS SUMMARY | 2024-11-28 08:25 | XMS_ITS | Clinical Summary ---
Author Organization [facility] Address [address] [place] [address] Care Team Providers Care Feather Trimmer Name Role Phone Kenji Ch MD Primary Care Provider Allergies No known active allergies Medications potassium [...] on file Legal Sex Male 2:36 AM STEAM CONDITIONER OPERATOR Gender Identity Male 12/12/2023 12:49 PM CDT Sexual Orientation Straight 12/22/2020 2: 32 AM STEAM CONDITIONER OPERATOR Obstetrics History Last Filed Vital Signs Vital [...] 03/30/2020 Influenza Vaccine (#1) 2024 Insurance [facility]ICARE [facility] MEDICARE [facility] FEDERAL Care Teams Feather Trimmer Relationship Specialty Start Date End Date Kenji Ch MD PCP - General Family Medicine 06/29/21
--- OUTSIDE RECORDS SUMMARY | 2024-11-28 08:25 | XMS_ITS | Encounter Summary ---
Author Organization [facility] Address [address] [place] [address] Care Team Providers Care Ground Systems Engineer Name Role Phone Geoff Fallon MD Primary Care Provider [phone] Marek Sanches MD Primary Care Provider Kenji Ch MD Primary Care Provider [phone] Encounter Details Date Type Department Care Team (Late st Contact Info) Description 01/01/2013 Orders Only [facility] [address] [place] [address] Scanning, Provider Social History Tobacco Use Types Packs/Day Years Used Date Smoking Tobacco: Never Assessed Sex and Gender Information Value Date Recorded Sex Assigned at Not on file 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
== END 2024-11-28 09:08 | disposition home or self-care (01) ==
PROVIDERS: Emergency Provider Emergency Medicine; PCP Family Medicine
DX: S00.03XA Contusion of scalp, initial encounter (principal); I10 Essential (primary) hypertension; I25.10 Atherosclerotic heart disease of native coronary artery without angina pectoris; E78.5 Hyperlipidemia, unspecified; M16.11 Unilateral primary osteoarthritis, right hip; Z96.652 Presence of left artificial knee joint; Z96.641 Presence of right artificial hip joint; Z87.891 Personal history of nicotine dependence; W01.198A Fall on same level from slipping, tripping and stumbling with subsequent striking against other object, initial encounter
CPT/HCPCS: 70450; 72125; 99284